=== PATIENT | female | born 1960 | race Caucasian/White ===

== ENCOUNTER → 2016-08-08 | Outpatient (CLI) | payer BC ==
[~2016-08-08] MED LIST: ANTIVERT PO; FLONASE 0.05% N16 G1; LEVAQUIN750 MG PO; VICODIN 5/500 T1 TAB PO
--- NOTE | ~2016-08-08 | CT2 ---
[facility] A Service of [facility] RADIOLOGY TEXT RESULTS PATIENT: KELSEY GORMAN LOCATION: [facility] : 64 UNIT #: [id number] AGE: [address]: Mo Cervantes MD SEX: F ORDER DR: [id number] [place] [id number] [facility]. [place], [place] [address] [id number] O MR#: [id number] Acc #: [id number] NAME: KELSEY GORMAN. : 1960 SEX: F STUDY DATE/TIME: 08/08/2016 12:44 UNIT: [facility] ROOM: STUDY DESCRIPTION: CT Abd and Pelv W Cont Attending Physician: Mo Cervantes M.D. Referring Physician: Mo Cervantes M.D. Ordering Physician: Mo Cervantes M.D. Primary Care Physician: Mo Cervantes M.D. MEDICAL IMAGING REPORT This report is preliminary unless electronic signature is present EXAM CT abdomen and pelvis with contrast INDICATIONS Right upper quadrant abdominal pain for the past month. PROCEDURE Contrast-enhanced CT of the abdomen and pelvis 100 mL of Isovue-[address] exam was performed with one or more of the following radiation dose reduction techniques: automatic exposure control, adjustment of mA and/or kV according to patient size, and iterative reconstruction. COMPARISON None FINDINGS Abdomen with contrast: Occluded lung bases are clear. The liver, spleen kidneys adrenal glands pancreas and gallbladder unremarkable. Bowel loops are nondilated. Appendix is normal. Pelvis with contrast: There is a 2.2 cm cyst in the left ovary. No pelvic fluid. No aggressive appearing bone lesion. IMPRESSION 1. No acute findings. 2. A 2.2 cm cyst in the left adnexa probably represents a benign functional cyst. Correlate with patient's menstrual status. It can be followed with pelvic ultrasound if desired clinically. Dictated by... [facility] A Service [facility] RADIOLOGY TEXT RESULTS PATIENT: KELSEY GORMAN [facility] : 64 UNIT #: [id number] AGE: [address]: Mo Cervantes MD SEX: F ORDER DR: Maco Borges M.D. THIS IS AN ELECTRONICALLY VERIFIED REPORT Maco Borges M.D. at 08/09/2016 7:19 AM NOVA/loki TD: 08/08/2016 21:53 JOB #: [id number] MEDICAL IMAGING REPORT Page 1 of 1 COPY
== END | disposition home or self-care (01) ==
LOC: CCAT 11:10
DX: R10.9 Unspecified abdominal pain (principal); N83.202 Unspecified ovarian cyst, left side
CPT/HCPCS: 74177; Q9967

== ENCOUNTER → 2016-09-08 | Outpatient (CLI) | payer BC ==
--- NOTE | ~2016-09-08 | US98 ---
[facility] A Service of [facility] & [facility] RADIOLOGY TEXT RESULTS PATIENT: KELSEY GORMAN [facility] 64 UNIT #: [id number] AGE: [address]: Mo Cervantes MD SEX: F ORDER DR: [id number] [facility] [address]. [place], [place] [address] [id number] O MR#: [id number] Acc #: [id number] NAME: KELSEY GORMAN : 1960 SEX: F STUDY DATE/TIME: 09/08/2016 13:00 [facility] ROOM: STUDY DESCRIPTION: US Pelvic Non-OB Complete Attending Physician: Mo Cervantes M.D. Ordering Physician: Mo Cervantes M.D. Primary Care Physician: Mo Cervantes M.D. MEDICAL IMAGING REPORT This report is preliminary unless electronic signature is present EXAM Pelvic ultrasound. INDICATION Left adnexal cyst. This was seen n a CT performed on August 08, 2016. TECHNIQUE Dorman-scale color Doppler and spectral Doppler waveform analysis was performed through the pelvis both transabdominally and transvaginally. FINDINGS The patient's uterus appears unremarkable. It measures within normal size limits, and is homogeneous in echotexture. Endometrium measures within normal size limits. Patient's right ovary cannot be seen on these images. The patient is noted to have a cystic structure within the left ovary, which measures up to 1.1 x 0.6 x 1.3 cm. It does contain a septation within it. IMPRESSION Previously identified left adnexal cyst is again noted. It measures up to 1.3 x 1.1 x 0.6 cm, which is actually smaller than on the prior study. It does, however, contain a septation within it. I would suggest sonographic follow up in 1 year to document resolution or stability. Dictated by... Linnea Urena M.D. THIS IS AN ELECTRONICALLY VERIFIED REPORT Linnea Urena M.D. at 09/11/2016 7:56 AM AFF/jt [facility]. [facility] A Service of [facility] & [facility] RADIOLOGY TEXT RESULTS PATIENT: KELSEY GORMAN [facility] 64 UNIT #: [id number] AGE: [address]: Mo Cervantes MD SEX: F ORDER DR: TD: 09/08/2016 21:52 JOB #: [id number] MEDICAL IMAGING REPORT Page 1 of 1 COPY
== END | disposition home or self-care (01) ==
LOC: CWCC 12:34
DX: N94.9 Unspecified condition associated with female genital organs and menstrual cycle (principal); N94.89 Other specified conditions associated with female genital organs and menstrual cycle
CPT/HCPCS: 76830; 76856

== ENCOUNTER → 2016-10-12 | Outpatient (CLI) | payer BC ==
--- NOTE | ~2016-10-12 | US5 ---
[facility] A Service of [facility] RADIOLOGY TEXT RESULTS PATIENT: KELSEY GORMAN LOCATION: [facility] : 64 UNIT #: [id number] AGE: [address]: ROXI FALCON APRN SEX: F ORDER DR: [id number] [address] [address] [id number] O MR#: [id number] Acc #: [id number] NAME: KELSEY GORMAN : 1960 SEX: F STUDY DATE/TIME: 10/12/2016 8:12 UNIT: [facility] ROOM: STUDY DESCRIPTION: US Abdominal Complete Attending Physician: Roxi Falcon Np Referring Physician: Roxi Falcon Np Ordering Physician: Roxi Falcon Np Primary Care Physician: Roxi Falcon Np MEDICAL IMAGING REPORT This report is preliminary unless electronic signature is present. EXAM Abdominal ultrasound complete, 10/12/2016. HISTORY Abdominal pain for 7 months. Left upper quadrant pain, abdominal mass, nausea for 7 months. Palpable tender area in the left upper quadrant for 7 months. FINDINGS The liver is homogeneous in echotexture and demonstrates no cystic or solid mass lesions. The intra and extrahepatic bile ducts are not dilated. The gallbladder is normal with no evidence of cholelithiasis, wall thickening, or pericholecystic fluid. The common duct measures 2 mm. The pancreas and spleen are normal. The spleen measures 10 cm in greatest diameter. The visualized portions of the abdominal aorta and inferior vena cava are within normal limits. The kidneys are normal bilaterally. At the site of palpated abnormality in the left upper quadrant anterior abdominal wall, there is a 1.5 cm x 8 mm oval homogeneously echogenic nodule at the junction of the muscular tissue and subcutaneous tissue, probably representing a small lipoma. IMPRESSION 1. Negative abdominal ultrasound. 2. At the site of palpated abnormality, left upper quadrant anterior abdominal wall, there is a 1.5 cm oval homogeneously echogenic nodule located at the junction of the subcutaneous fat and muscular tissue probably representing a lipoma. Dictated by... Sixto Wilson M.D. [facility] A Service of [facility] RADIOLOGY TEXT RESULTS PATIENT: KELSEY GORMAN LOCATION: [facility] #: [id number] : 64 UNIT #: [id number] AGE: [address]: ROXI FALCON APRN SEX: F ORDER DR: THIS IS AN ELECTRONICALLY VERIFIED REPORT Sixto Wilson M.D. at 10/12/2016 5:14 PM TERESA/oswaldo TD: 10/12/2016 15:08 JOB #: [id number] MEDICAL IMAGING REPORT Page 1 of 1
== END | disposition home or self-care (01) ==
LOC: SGUS 08:07
DX: R10.9 Unspecified abdominal pain (principal); R19.02 Left upper quadrant abdominal swelling, mass and lump
CPT/HCPCS: 76700